=== PATIENT | male | born 1950 | race Two or more races ===

== ENCOUNTER 2021-09-23 08:53 | Inpatient (IN) | payer OTHER, MEDICAID ==
[~2021-09-23] VITALS: Ht 172.7 cm; Wt 60.1 kg
[2021-09-23] MEDS ORDERED: methylPREDNISolone SOD SUCC 125 MG/2 ML VL IV ONE (10:30)
[2021-09-23] MEDS ORDERED: IPRATROPIUM BROM 0.5 MG/2.5ML INH SOL NEB ONE (10:30)
[2021-09-23] MEDS ORDERED: ALBUTEROL SULF 2.5 MG/0.5ML(0.5%) NEB SOLN NEB ONE (10:30)
[2021-09-23 12:02] LABS: Basophils # (auto) 0.1 10 ^3/uL (0-0.2); Basophils % (auto) 0.7 % (0.0-2.0); Eosinophils # (auto) 0.2 10 ^3/uL (0-0.8); Eosinophils % (auto) 1.9 % (0.0-7.0); Hematocrit 31.7 % (41.0-53.0); Hemoglobin 10.6 g/dL (13.5-17.5); Lymphocytes # (auto) 1.2 10 ^3/uL (0.4-5.4); Lymphocytes % (auto) 13.3 % (10.0-50.0); Mean Corpuscular Hemoglobin 29.4 pg (28.0-32.0); Mean Corpuscular Hgb Conc. 33.4 g/dL (32.0-36.0); Monocytes # (auto) 0.4 10 ^3/uL (0-1.3); Monocytes % (auto) 4.8 % (0.0-12.0); Neutrophils # (auto) 7.1 10 ^3/uL (1.6-8.6); Neutrophils % (auto) 79.3 % (37.0-80.0); Nucleated Red Blood Cells % 0.1 %; Red Cell Distribution Width 17.8 % (11.8-14.3); White Blood Cell 8.9 10^3/uL (4.4-10.8)
[2021-09-23] MEDS ORDERED: IPRATROPIUM BROM 0.5 MG/2.5ML INH SOL NEB PRN (12:30)
[2021-09-23 12:33] LABS: Potassium 4.2 mmol/L (3.5-5.1)
[2021-09-23 13:13] LABS: Albumin 2.5 g/dL (3.4-5.0); BUN/Creatinine Ratio 12.4; Bilirubin, Total 0.5 mg/dL (0.2-1.0); Calcium 8.6 mg/dL (8.5-10.1); Total Protein 6.7 g/dL (6.4-8.2)
[2021-09-23] MEDS ORDERED: FUROSEMIDE 20 MG/2 ML VIAL IV ONE (13:15)
[2021-09-23] MEDS: methylPREDNISolone SOD SUCC 40 MG/ML VL IV SCH ×2 (14:00→22:49)
[2021-09-23] MEDS ORDERED: DOXYCYCLINE 100MG/250ML 250 ML IV ONE (14:30)
[2021-09-23] MEDS ORDERED: cefTRIAXone 1GM/50ML D5W 50 ML IV ONE ×2 (14:30→19:00)
[2021-09-23 15:05] LABS: Urine Bacteria NONE SEEN /hpf (None Seen); Urine Blood TRACE /uL (Negative); Urine Specific Gravity 1.012 (1.001-1.035); Urine WBC 1 /hpf (0 - 3)
[2021-09-23] MEDS ORDERED: LABETALOL HCL 5 MG/ML 4ML SYRINGE IV ONE (17:15)
[2021-09-23] MEDS ORDERED: NITROGLYCERIN 0.4 MG SL TAB SL PRN ×2 (17:15→19:15)
[2021-09-23] MEDS ORDERED: MORPHINE SULFATE INJECTION 2 MG/ML SYRG IV PRN ×2 (17:15→19:15)
[2021-09-23] MEDS ORDERED: hydrALAZINE HCL 20 MG/ML VL IV ONE (17:45)
[2021-09-23] MEDS ORDERED: hydrALAZINE HCL 20 MG/ML VL ONE (17:45)
[2021-09-23] MEDS ORDERED: ALBUTEROL SULF 2.5 MG/0.5ML(0.5%) NEB SOLN NEB SCH (18:00)
[2021-09-23] MEDS ORDERED: LORazepam 2MG/ML-1ML VIAL IV ONE (18:15)
[2021-09-23] MEDS ORDERED: hydrALAZINE HCL 20 MG/ML VL IV PRN (18:30)
[2021-09-23] MEDS ORDERED: HYDR-4798 PO (18:50)
[2021-09-23] MEDS ORDERED: AMLO-496 PO (18:50)
[2021-09-23] MEDS ORDERED: ALEN70TA74 PO (18:50)
[2021-09-23] MEDS ORDERED: BACL10TA PO (18:50)
[2021-09-23] MEDS ORDERED: TRAZ-184 PO (18:50)
[2021-09-23] MEDS ORDERED: GABA800T97 PO (18:50)
[2021-09-23] MEDS ORDERED: SERT-160 PO (18:50)
[2021-09-23] MEDS ORDERED: NITR0.4S29 SL (18:50)
[2021-09-23] MEDS ORDERED: ALBU108A5 INH (18:50)
[2021-09-23] MEDS ORDERED: DOXY100T2 PO (18:50)
[2021-09-23] MEDS ORDERED: ALPR0.255 PO (18:50)
[2021-09-23] MEDS ORDERED: LABETALOL HCL 5 MG/ML 4ML SYRINGE IV PRN (19:00)
[2021-09-23] MEDS ORDERED: ENOXAPARIN SOD 40 MG/0.4 ML SYRINGE SC ONE (19:00)
[2021-09-23] MEDS ORDERED: FAMOTIDINE (10MG/ML) 2ML VL IV ONE (19:00)
[2021-09-23] MEDS ORDERED: ONDANSETRON HCL 4 MG/2 ML VIAL IV PRN (19:15)
[2021-09-23] MEDS ORDERED: DOCUSATE SOD 100 MG CAP PO PRN (19:15)
[2021-09-23] MEDS ORDERED: NIFEdipine ER 30 MG TAB PO ONE (19:15)
[2021-09-23] MEDS ORDERED: ACETAMINOPHEN 325 MG TAB PO PRN (19:15)
[2021-09-23] MEDS ORDERED: ALUM & MAG HYDROX-SIMETH LIQ(MAALOX) 30 ML PO PRN (19:15)
[2021-09-23] MEDS ORDERED: SODIUM CHLORIDE 0.9% 1,000 ML IV SCH (19:15)
[2021-09-23] MEDS ORDERED: METOPROLOL SUCCINATE XL 50 MG TAB PO ONE (19:15)
[2021-09-23] MEDS: ZOLPIDEM TARTRATE 5 MG TAB PO PRN (19:24)
[2021-09-23] MEDS ORDERED: BUDESONIDE (INHALATION) 0.5 MG/2 ML NEB NEB ONE (19:25)
[2021-09-23] MEDS ORDERED: AZITHROMYCIN 500MG/ 250ML 250 ML IV ONE (20:00)
[2021-09-23] MEDS: ALBUTEROL SULF 2.5 MG/0.5ML(0.5%) NEB SOLN NEB SCH ×2 (20:06→22:38)
[2021-09-23] MEDS: IPRATROPIUM BROM 0.5 MG/2.5ML INH SOL NEB SCH ×2 (20:06→22:38)
[2021-09-23 20:43] LABS: Alcohol, Urine < 3.0 mg/dL (0-10); Amphetamine Screen, Urine NEGATIVE (NEGATIVE); Barbiturate Scree,Urine NEGATIVE (NEGATIVE); Benzodiazephine Screen, Urine POSITIVE (NEGATIVE); Cocaine Screen, Urine NEGATIVE (NEGATIVE); Opiate Scree,Urine NEGATIVE (NEGATIVE); Phencyclidine Screen, Urine NEGATIVE (NEGATIVE)
[2021-09-23 20:52] LABS: Cannabinoid Screen, Urine POSITIVE (NEGATIVE)
[2021-09-23] MEDS: FAMOTIDINE (10MG/ML) 2ML VL IV SCH (22:00)
[2021-09-23] MEDS: traZODone HCL 50 MG TAB PO SCH (22:49)
[2021-09-23] MEDS: GABAPENTIN 300 MG CAP PO SCH (22:50)
[2021-09-23] MEDS: ATORVASTATIN 20 MG TAB PO SCH (22:50)
[2021-09-23] MEDS: POTASSIUM CHL 20 Meq TABLET PO SCH (22:50)
[2021-09-23] MEDS: MORPHINE SULFATE INJECTION 2 MG/ML SYRG IV PRN (22:52)
[2021-09-24] MEDS: ALBUTEROL SULF 2.5 MG/0.5ML(0.5%) NEB SOLN NEB SCH ×6 (02:09→22:00)
[2021-09-24] MEDS: IPRATROPIUM BROM 0.5 MG/2.5ML INH SOL NEB SCH ×6 (02:09→22:00)
[2021-09-24] MEDS: ZOLPIDEM TARTRATE 5 MG TAB PO PRN ×2 (02:22→22:53)
[2021-09-24] MEDS: BUDESONIDE (INHALATION) 0.5 MG/2 ML NEB NEB SCH (05:28)
[2021-09-24] MEDS: GABAPENTIN 300 MG CAP PO SCH ×3 (06:00→21:08)
[2021-09-24] MEDS: FUROSEMIDE 20 MG/2 ML VIAL IV SCH ×2 (07:04→18:03)
[2021-09-24] MEDS: methylPREDNISolone SOD SUCC 40 MG/ML VL IV SCH ×3 (07:04→21:08)
[2021-09-24 08:27] LABS: Basophils # (auto) 0 10 ^3/uL (0-0.2); Eosinophils # (auto) 0.1 10 ^3/uL (0-0.8); Eosinophils % (auto) 0.6 % (0.0-7.0); Hematocrit 29.2 % (41.0-53.0); Hemoglobin 9.9 g/dL (13.5-17.5); Lymphocytes # (auto) 1.1 10 ^3/uL (0.4-5.4); Mean Corpuscular Hemoglobin 29.5 pg (28.0-32.0); Mean Corpuscular Hgb Conc. 33.8 g/dL (32.0-36.0); Mean Corpuscular Volume 87.2 fL (80.0-100.0); Monocytes # (auto) 0.7 10 ^3/uL (0-1.3); Monocytes % (auto) 8.6 % (0.0-12.0); Neutrophils # (auto) 6.6 10 ^3/uL (1.6-8.6); Neutrophils % (auto) 77.8 % (37.0-80.0); Red Blood Cells 3.35 10^6/uL (4.5-5.90); Red Cell Distribution Width 17.2 % (11.8-14.3); White Blood Cell 8.5 10^3/uL (4.4-10.8)
[2021-09-24 08:45] LABS: INR 1.01 (0.9-1.15); Partial Thromboplastin Time 32.9 sec (23.6-33.0)
[2021-09-24 08:54] LABS: Magnesium 2.1 mg/dL (1.6-2.6); Phosphorus 4.8 mg/dL (2.5-4.90); Uric Acid 6.7 mg/dL (3.5-7.2)
[2021-09-24] MEDS: cefTRIAXone 1GM/50ML D5W 50 ML IV SCH (09:12)
[2021-09-24] MEDS ORDERED: ENOXAPARIN SOD 40 MG/0.4 ML SYRINGE SC SCH ×2 (10:00)
[2021-09-24] MEDS: FAMOTIDINE (10MG/ML) 2ML VL IV SCH (10:13)
[2021-09-24] MEDS: AZITHROMYCIN 500MG/ 250ML 250 ML IV SCH (10:13)
[2021-09-24] MEDS: POTASSIUM CHL 20 Meq TABLET PO SCH (10:14)
[2021-09-24] MEDS: BENAZEPRIL HCL 10 MG TAB PO SCH (10:14)
[2021-09-24] MEDS: ASPirin 81 mg TAB PO SCH (10:14)
[2021-09-24] MEDS: NIFEdipine ER 30 MG TAB PO SCH (10:16)
[2021-09-24] MEDS: METOPROLOL SUCCINATE XL 50 MG TAB PO SCH (10:16)
[2021-09-24] MEDS: SERTRALINE HCL 50 MG TAB PO SCH (10:16)
[2021-09-24 13:31] VITALS: BP 112/60
[2021-09-24 14:51] LABS: BUN/Creatinine Ratio 14.8; Calcium 8.1 mg/dL (8.5-10.1); Potassium 5.5 mmol/L (3.5-5.1)
[2021-09-24 16:42] VITALS: BP 110/60
[2021-09-24] MEDS: ATORVASTATIN 20 MG TAB PO SCH (21:08)
[2021-09-24] MEDS: traZODone HCL 50 MG TAB PO SCH (21:09)
[2021-09-24 22:00] VITALS: BP 115/60
[2021-09-25] MEDS: ALBUTEROL SULF 2.5 MG/0.5ML(0.5%) NEB SOLN NEB SCH ×6 (02:26→22:24)
[2021-09-25] MEDS: BUDESONIDE (INHALATION) 0.5 MG/2 ML NEB NEB SCH ×3 (02:26→18:33)
[2021-09-25] MEDS: IPRATROPIUM BROM 0.5 MG/2.5ML INH SOL NEB SCH ×6 (02:26→22:24)
[2021-09-25 05:00] VITALS: BP 115/65
[2021-09-25] MEDS: FUROSEMIDE 20 MG/2 ML VIAL IV SCH ×2 (05:32→17:54)
[2021-09-25] MEDS: GABAPENTIN 300 MG CAP PO SCH ×3 (05:33→21:42)
[2021-09-25] MEDS: methylPREDNISolone SOD SUCC 40 MG/ML VL IV SCH ×2 (05:33→21:41)
[2021-09-25] MEDS ORDERED: CLOPIDOGREL BISULFATE 75 MG TAB PO ONE (07:00)
[2021-09-25 08:00] VITALS: BP 128/68
[2021-09-25] MEDS: cefTRIAXone 1GM/50ML D5W 50 ML IV SCH (08:33)
[2021-09-25 09:00] VITALS: BP 128/68
[2021-09-25] MEDS: FAMOTIDINE (10MG/ML) 2ML VL IV SCH (09:57)
[2021-09-25] MEDS: AZITHROMYCIN 500MG/ 250ML 250 ML IV SCH (09:57)
[2021-09-25] MEDS: ASPirin 81 mg TAB PO SCH (09:58)
[2021-09-25] MEDS: ENOXAPARIN SOD 30 MG/0.3 ML SYRINGE SC SCH (09:58)
[2021-09-25] MEDS: SERTRALINE HCL 50 MG TAB PO SCH (09:59)
[2021-09-25] MEDS: METOPROLOL SUCCINATE XL 50 MG TAB PO SCH (09:59)
[2021-09-25] MEDS: BENAZEPRIL HCL 10 MG TAB PO SCH (10:00)
[2021-09-25] MEDS: NIFEdipine ER 30 MG TAB PO SCH (10:01)
[2021-09-25] MEDS ORDERED: SODIUM ZIRCONIUM CYCL 10 GM PAK PO ONE (10:30)
[2021-09-25 13:00] VITALS: BP 105/66
[2021-09-25] MEDS: HYDROcodone-ACET 5/325MG TAB PO PRN (18:09)
[2021-09-25 20:00] VITALS: BP 110/69
[2021-09-25] MEDS: traZODone HCL 50 MG TAB PO SCH (21:42)
[2021-09-25] MEDS: ATORVASTATIN 20 MG TAB PO SCH (21:42)
[2021-09-25 22:00] VITALS: BP 101/64
[2021-09-25] MEDS: ZOLPIDEM TARTRATE 5 MG TAB PO PRN (22:40)
[2021-09-26] MEDS: IPRATROPIUM BROM 0.5 MG/2.5ML INH SOL NEB SCH ×6 (02:00→22:44)
[2021-09-26] MEDS: ALBUTEROL SULF 2.5 MG/0.5ML(0.5%) NEB SOLN NEB SCH ×6 (02:00→22:44)
[2021-09-26 05:00] VITALS: BP 102/50
[2021-09-26] MEDS: FUROSEMIDE 20 MG/2 ML VIAL IV SCH (05:42)
[2021-09-26] MEDS: HYDROcodone-ACET 5/325MG TAB PO PRN ×3 (05:43→17:58)
[2021-09-26] MEDS: GABAPENTIN 300 MG CAP PO SCH ×3 (06:52→21:47)
[2021-09-26] MEDS: BUDESONIDE (INHALATION) 0.5 MG/2 ML NEB NEB SCH ×2 (06:53→19:14)
[2021-09-26 08:32] LABS: Potassium 4.4 mmol/L (3.5-5.1)
[2021-09-26 08:36] LABS: BUN/Creatinine Ratio 18.2; Calcium 7.8 mg/dL (8.5-10.1)
[2021-09-26 08:42] VITALS: BP 123/69
[2021-09-26] MEDS: cefTRIAXone 1GM/50ML D5W 50 ML IV SCH (09:00)
[2021-09-26] MEDS: AZITHROMYCIN 500MG/ 250ML 250 ML IV SCH (09:35)
[2021-09-26] MEDS: ASPirin 81 mg TAB PO SCH (09:35)
[2021-09-26] MEDS: methylPREDNISolone SOD SUCC 40 MG/ML VL IV SCH ×2 (09:35→21:45)
[2021-09-26] MEDS: FAMOTIDINE (10MG/ML) 2ML VL IV SCH (09:35)
[2021-09-26] MEDS: SERTRALINE HCL 50 MG TAB PO SCH (09:36)
[2021-09-26] MEDS: ENOXAPARIN SOD 30 MG/0.3 ML SYRINGE SC SCH (09:36)
[2021-09-26] MEDS: NIFEdipine ER 30 MG TAB PO SCH (09:48)
[2021-09-26] MEDS: METOPROLOL SUCCINATE XL 50 MG TAB PO SCH (09:48)
[2021-09-26] MEDS: BENAZEPRIL HCL 10 MG TAB PO SCH (09:48)
[2021-09-26 13:00] VITALS: BP 119/72
[2021-09-26 16:45] VITALS: BP 119/72
[2021-09-26 17:00] VITALS: BP 122/66
[2021-09-26] MEDS: LORazepam 0.5 MG TAB PO PRN (21:04)
[2021-09-26] MEDS: ERTAPENEM SOD INJ 0.5 GM in SODIUM CHL 0.9% 50 ML IV SCH (21:45)
[2021-09-26] MEDS: hydrALAZINE HCL 25 MG TAB PO SCH (21:46)
[2021-09-26] MEDS: traZODone HCL 50 MG TAB PO SCH (21:46)
[2021-09-26] MEDS: ATORVASTATIN 20 MG TAB PO SCH (21:46)
[2021-09-26 22:00] VITALS: BP 125/66
[2021-09-26] MEDS ORDERED: ERTAPENEM SOD INJ 1 GM in SODIUM CHL 0.9% 50 ML IV SCH (22:00)
[2021-09-26] MEDS: ZOLPIDEM TARTRATE 5 MG TAB PO PRN (22:26)
[2021-09-27] MEDS: IPRATROPIUM BROM 0.5 MG/2.5ML INH SOL NEB SCH ×6 (02:00→22:29)
[2021-09-27] MEDS: ALBUTEROL SULF 2.5 MG/0.5ML(0.5%) NEB SOLN NEB SCH ×6 (02:00→22:29)
[2021-09-27 05:00] VITALS: BP_SYST 110; BP_SYST 99; BP_DIAS 66; BP_DIAS 68
[2021-09-27] MEDS: GABAPENTIN 300 MG CAP PO SCH ×3 (06:00→22:02)
[2021-09-27 06:26] LABS: BUN/Creatinine Ratio 19.4; Calcium 7.9 mg/dL (8.5-10.1); Potassium 5.3 mmol/L (3.5-5.1)
[2021-09-27] MEDS: BUDESONIDE (INHALATION) 0.5 MG/2 ML NEB NEB SCH ×2 (07:08→19:08)
[2021-09-27] MEDS: SERTRALINE HCL 50 MG TAB PO SCH (08:20)
[2021-09-27] MEDS: ASPirin 81 mg TAB PO SCH (08:23)
[2021-09-27] MEDS: METOPROLOL SUCCINATE XL 50 MG TAB PO SCH (08:23)
[2021-09-27] MEDS: NIFEdipine ER 30 MG TAB PO SCH (08:24)
[2021-09-27] MEDS: hydrALAZINE HCL 25 MG TAB PO SCH ×2 (08:25→22:02)
[2021-09-27] MEDS: AZITHROMYCIN 500MG/ 250ML 250 ML IV SCH (08:26)
[2021-09-27] MEDS: FAMOTIDINE (10MG/ML) 2ML VL IV SCH (08:26)
[2021-09-27] MEDS: ENOXAPARIN SOD 30 MG/0.3 ML SYRINGE SC SCH (08:27)
[2021-09-27] MEDS: methylPREDNISolone SOD SUCC 40 MG/ML VL IV SCH (08:27)
[2021-09-27] MEDS: HYDROcodone-ACET 5/325MG TAB PO PRN (08:28)
[2021-09-27 09:00] VITALS: BP 138/66
[2021-09-27] MEDS ORDERED: ERTAPENEM SOD INJ 0.5 GM in SODIUM CHL 0.9% 50 ML IV SCH (10:00)
[2021-09-27] MEDS: LORazepam 0.5 MG TAB PO PRN (11:05)
[2021-09-27 13:00] VITALS: BP 129/67
[2021-09-27 15:15] LABS: Partial Thromboplastin Time 29.5 sec (23.6-33.0)
[2021-09-27 15:36] LABS: Protein, Urine 127.5 mg/dL (0.0-11.9)
[2021-09-27] MEDS: MORPHINE SULFATE INJECTION 2 MG/ML SYRG IV PRN ×2 (16:13→20:18)
[2021-09-27 17:00] VITALS: BP 125/68
[2021-09-27 21:02] VITALS: BP 124/70
[2021-09-27] MEDS: traZODone HCL 50 MG TAB PO SCH (22:01)
[2021-09-27] MEDS: ATORVASTATIN 20 MG TAB PO SCH (22:02)
[2021-09-27] MEDS: ERTAPENEM SOD INJ 0.5 GM in SODIUM CHL 0.9% 50 ML IV SCH (22:04)
[2021-09-27] MEDS: ZOLPIDEM TARTRATE 5 MG TAB PO PRN (22:34)
[2021-09-28] MEDS: IPRATROPIUM BROM 0.5 MG/2.5ML INH SOL NEB SCH ×6 (02:00→22:17)
[2021-09-28] MEDS: ALBUTEROL SULF 2.5 MG/0.5ML(0.5%) NEB SOLN NEB SCH ×6 (02:00→22:17)
[2021-09-28] MEDS: GABAPENTIN 300 MG CAP PO SCH ×3 (06:01→20:56)
[2021-09-28 08:39] VITALS: BP 137/66
[2021-09-28] MEDS: AZITHROMYCIN 500MG/ 250ML 250 ML IV SCH (09:39)
[2021-09-28] MEDS: FAMOTIDINE (10MG/ML) 2ML VL IV SCH (09:39)
[2021-09-28] MEDS: methylPREDNISolone SOD SUCC 40 MG/ML VL IV SCH (09:39)
[2021-09-28] MEDS: NIFEdipine ER 30 MG TAB PO SCH (09:40)
[2021-09-28] MEDS: ENOXAPARIN SOD 30 MG/0.3 ML SYRINGE SC SCH (09:40)
[2021-09-28] MEDS: hydrALAZINE HCL 25 MG TAB PO SCH ×2 (09:40→21:05)
[2021-09-28] MEDS: SERTRALINE HCL 50 MG TAB PO SCH (09:40)
[2021-09-28] MEDS: ASPirin 81 mg TAB PO SCH (09:40)
[2021-09-28] MEDS: METOPROLOL SUCCINATE XL 50 MG TAB PO SCH (09:40)
[2021-09-28] MEDS: BUDESONIDE (INHALATION) 0.5 MG/2 ML NEB NEB SCH ×2 (10:23→22:17)
[2021-09-28 11:28] LABS: Albumin 2.2 g/dL (3.4-5.0); Calcium 7.8 mg/dL (8.5-10.1); Potassium 5.1 mmol/L (3.5-5.1)
[2021-09-28 11:33] LABS: Bilirubin, Total 0.2 mg/dL (0.2-1.0); Total Protein 5.3 g/dL (6.4-8.2)
[2021-09-28 13:00] VITALS: BP 135/71
[2021-09-28] MEDS: HYDROcodone-ACET 5/325MG TAB PO PRN ×2 (14:13→20:56)
[2021-09-28 17:00] VITALS: BP 130/75
[2021-09-28] MEDS: ATORVASTATIN 20 MG TAB PO SCH (20:56)
[2021-09-28] MEDS: traZODone HCL 50 MG TAB PO SCH (21:05)
[2021-09-28] MEDS: ZOLPIDEM TARTRATE 5 MG TAB PO PRN (21:06)
[2021-09-28] MEDS: ERTAPENEM SOD INJ 0.5 GM in SODIUM CHL 0.9% 50 ML IV SCH (21:13)
[2021-09-28 21:38] VITALS: BP 123/70
[2021-09-29] MEDS: IPRATROPIUM BROM 0.5 MG/2.5ML INH SOL NEB SCH ×6 (02:12→21:57)
[2021-09-29] MEDS: ALBUTEROL SULF 2.5 MG/0.5ML(0.5%) NEB SOLN NEB SCH ×6 (02:12→21:57)
[2021-09-29 05:00] VITALS: BP 134/69
[2021-09-29] MEDS: BUDESONIDE (INHALATION) 0.5 MG/2 ML NEB NEB SCH ×2 (06:21→18:18)
[2021-09-29 07:47] LABS: Albumin 2.2 g/dL (3.4-5.0); BUN/Creatinine Ratio 19.5; Bilirubin, Total 0.2 mg/dL (0.2-1.0); Calcium 8.3 mg/dL (8.5-10.1); Total Protein 5.2 g/dL (6.4-8.2)
[2021-09-29 08:52] VITALS: BP 134/69
[2021-09-29 09:00] VITALS: BP 132/56
[2021-09-29] MEDS: ASPirin 81 mg TAB PO SCH (09:35)
[2021-09-29] MEDS: METOPROLOL SUCCINATE XL 50 MG TAB PO SCH (09:36)
[2021-09-29] MEDS: FAMOTIDINE (10MG/ML) 2ML VL IV SCH (09:36)
[2021-09-29] MEDS: SERTRALINE HCL 50 MG TAB PO SCH (09:37)
[2021-09-29] MEDS: NIFEdipine ER 30 MG TAB PO SCH (09:38)
[2021-09-29] MEDS: hydrALAZINE HCL 25 MG TAB PO SCH ×2 (09:39→22:06)
[2021-09-29] MEDS: methylPREDNISolone SOD SUCC 40 MG/ML VL IV SCH (09:40)
[2021-09-29] MEDS: AZITHROMYCIN 500MG/ 250ML 250 ML IV SCH (09:41)
[2021-09-29] MEDS: ENOXAPARIN SOD 30 MG/0.3 ML SYRINGE SC SCH (09:41)
[2021-09-29] MEDS: MORPHINE SULFATE INJECTION 2 MG/ML SYRG IV PRN (09:43)
[2021-09-29] MEDS: GABAPENTIN 300 MG CAP PO SCH ×3 (10:00→22:06)
[2021-09-29 13:00] VITALS: BP 129/70
[2021-09-29] MEDS: HYDROcodone-ACET 5/325MG TAB PO PRN ×2 (16:13→20:38)
[2021-09-29 17:00] VITALS: BP 130/66
[2021-09-29 22:00] VITALS: BP 132/73
[2021-09-29] MEDS: ERTAPENEM SOD INJ 0.5 GM in SODIUM CHL 0.9% 50 ML IV SCH (22:05)
[2021-09-29] MEDS: ATORVASTATIN 20 MG TAB PO SCH (22:06)
[2021-09-29] MEDS: traZODone HCL 50 MG TAB PO SCH (22:06)
[2021-09-29] MEDS: ZOLPIDEM TARTRATE 5 MG TAB PO PRN (23:13)
[2021-09-30] MEDS: ALBUTEROL SULF 2.5 MG/0.5ML(0.5%) NEB SOLN NEB SCH ×7 (02:00→22:07)
[2021-09-30] MEDS: IPRATROPIUM BROM 0.5 MG/2.5ML INH SOL NEB SCH ×7 (02:00→22:07)
[2021-09-30 05:00] VITALS: BP 126/60
[2021-09-30] MEDS: GABAPENTIN 300 MG CAP PO SCH ×3 (05:52→22:07)
[2021-09-30] MEDS ORDERED: ALENDRONATE SODIUM 10 MG TAB PO SCH (06:00)
[2021-09-30 06:52] LABS: Albumin 2.1 g/dL (3.4-5.0); Potassium 4.5 mmol/L (3.5-5.1)
[2021-09-30 06:55] LABS: Bilirubin, Total 0.2 mg/dL (0.2-1.0); Total Protein 4.7 g/dL (6.4-8.2)
[2021-09-30 08:44] VITALS: BP 142/63
[2021-09-30] MEDS: BUDESONIDE (INHALATION) 0.5 MG/2 ML NEB NEB SCH ×2 (10:03→18:35)
[2021-09-30] MEDS: ASPirin 81 mg TAB PO SCH (10:09)
[2021-09-30] MEDS: SERTRALINE HCL 50 MG TAB PO SCH (10:10)
[2021-09-30] MEDS: hydrALAZINE HCL 25 MG TAB PO SCH ×2 (10:10→22:10)
[2021-09-30] MEDS: METOPROLOL SUCCINATE XL 50 MG TAB PO SCH (10:11)
[2021-09-30] MEDS: FAMOTIDINE (10MG/ML) 2ML VL IV SCH (10:12)
[2021-09-30] MEDS: NIFEdipine ER 30 MG TAB PO SCH (10:12)
[2021-09-30] MEDS: methylPREDNISolone SOD SUCC 40 MG/ML VL IV SCH (10:12)
[2021-09-30] MEDS: ENOXAPARIN SOD 30 MG/0.3 ML SYRINGE SC SCH (10:13)
[2021-09-30] MEDS: AZITHROMYCIN 500MG/ 250ML 250 ML IV SCH (10:13)
[2021-09-30] MEDS: HYDROcodone-ACET 5/325MG TAB PO PRN (10:15)
[2021-09-30 13:17] VITALS: BP 139/74
[2021-09-30 16:46] VITALS: BP 127/66
[2021-09-30] MEDS: ERTAPENEM SOD INJ 0.5 GM in SODIUM CHL 0.9% 50 ML IV SCH (22:05)
[2021-09-30] MEDS: ATORVASTATIN 20 MG TAB PO SCH (22:06)
[2021-09-30] MEDS: traZODone HCL 50 MG TAB PO SCH (22:06)
[2021-09-30] MEDS: ZOLPIDEM TARTRATE 5 MG TAB PO PRN (22:07)
[2021-09-30] MEDS: MORPHINE SULFATE INJECTION 2 MG/ML SYRG IV PRN (22:09)
[2021-09-30 22:22] VITALS: BP 137/69
[2021-10-01] MEDS: ALBUTEROL SULF 2.5 MG/0.5ML(0.5%) NEB SOLN NEB SCH ×6 (02:31→22:20)
[2021-10-01] MEDS: IPRATROPIUM BROM 0.5 MG/2.5ML INH SOL NEB SCH ×6 (02:32→22:20)
[2021-10-01 05:10] VITALS: BP 134/72
[2021-10-01] MEDS: GABAPENTIN 300 MG CAP PO SCH ×3 (05:36→22:05)
[2021-10-01 07:28] LABS: Basophils # (auto) 0 10 ^3/uL (0-0.2); Basophils % (auto) 0.1 % (0.0-2.0); Eosinophils # (auto) 0.1 10 ^3/uL (0-0.8); Eosinophils % (auto) 0.6 % (0.0-7.0); Hematocrit 27.3 % (41.0-53.0); Hemoglobin 9.1 g/dL (13.5-17.5); Lymphocytes % (auto) 30.2 % (10.0-50.0); Mean Corpuscular Hemoglobin 29.1 pg (28.0-32.0); Mean Corpuscular Hgb Conc. 33.3 g/dL (32.0-36.0); Mean Corpuscular Volume 87.2 fL (80.0-100.0); Monocytes # (auto) 0.8 10 ^3/uL (0-1.3); Monocytes % (auto) 8.7 % (0.0-12.0); Neutrophils # (auto) 5.9 10 ^3/uL (1.6-8.6); Neutrophils % (auto) 60.4 % (37.0-80.0); Red Blood Cells 3.12 10^6/uL (4.5-5.90); Red Cell Distribution Width 16.6 % (11.8-14.3); White Blood Cell 9.8 10^3/uL (4.4-10.8)
[2021-10-01 07:44] LABS: Potassium 4.5 mmol/L (3.5-5.1)
[2021-10-01 07:49] LABS: Albumin 2.3 g/dL (3.4-5.0); BUN/Creatinine Ratio 17.6; Bilirubin, Total 0.2 mg/dL (0.2-1.0); Calcium 8.2 mg/dL (8.5-10.1); Total Protein 5.2 g/dL (6.4-8.2)
[2021-10-01 08:30] VITALS: BP 129/67
[2021-10-01] MEDS: FAMOTIDINE (10MG/ML) 2ML VL IV SCH (10:00)
[2021-10-01] MEDS: ENOXAPARIN SOD 30 MG/0.3 ML SYRINGE SC SCH (10:00)
[2021-10-01] MEDS: SERTRALINE HCL 50 MG TAB PO SCH (10:00)
[2021-10-01] MEDS: AZITHROMYCIN 500MG/ 250ML 250 ML IV SCH (10:00)
[2021-10-01] MEDS: ASPirin 81 mg TAB PO SCH (10:00)
[2021-10-01] MEDS: BUDESONIDE (INHALATION) 0.5 MG/2 ML NEB NEB SCH ×2 (10:27→19:24)
[2021-10-01] MEDS ORDERED: FUROSEMIDE 20 MG/2 ML VIAL IV ONE (11:15)
[2021-10-01] MEDS: MORPHINE SULFATE INJECTION 2 MG/ML SYRG IV PRN ×3 (11:17→22:06)
[2021-10-01 13:00] VITALS: BP 143/80
[2021-10-01] MEDS: hydrALAZINE HCL 25 MG TAB PO SCH ×2 (13:46→22:04)
[2021-10-01] MEDS: NIFEdipine ER 30 MG TAB PO SCH (13:46)
[2021-10-01] MEDS: METOPROLOL SUCCINATE XL 50 MG TAB PO SCH (13:46)
[2021-10-01] MEDS: HYDROcodone-ACET 5/325MG TAB PO PRN (13:54)
[2021-10-01 16:58] VITALS: BP 130/56
[2021-10-01] MEDS: ERTAPENEM SOD INJ 0.5 GM in SODIUM CHL 0.9% 50 ML IV SCH (22:00)
[2021-10-01] MEDS: ATORVASTATIN 20 MG TAB PO SCH (22:05)
[2021-10-01] MEDS: traZODone HCL 50 MG TAB PO SCH (22:05)
[2021-10-01 22:27] VITALS: BP 142/72
[2021-10-01] MEDS: ZOLPIDEM TARTRATE 5 MG TAB PO PRN (23:10)
[2021-10-02] MEDS: ALBUTEROL SULF 2.5 MG/0.5ML(0.5%) NEB SOLN NEB SCH ×4 (02:15→14:12)
[2021-10-02] MEDS: IPRATROPIUM BROM 0.5 MG/2.5ML INH SOL NEB SCH ×4 (02:15→14:12)
[2021-10-02 05:04] VITALS: BP 108/70
[2021-10-02] MEDS: GABAPENTIN 300 MG CAP PO SCH ×2 (06:10→14:00)
[2021-10-02 07:06] LABS: Albumin 2.2 g/dL (3.4-5.0); Calcium 7.9 mg/dL (8.5-10.1); Potassium 4.1 mmol/L (3.5-5.1)
[2021-10-02 07:11] LABS: BUN/Creatinine Ratio 18.5; Bilirubin, Total 0.2 mg/dL (0.2-1.0)
[2021-10-02] MEDS: BUDESONIDE (INHALATION) 0.5 MG/2 ML NEB NEB SCH (07:33)
[2021-10-02 09:00] VITALS: BP 132/69
[2021-10-02] MEDS: ASPirin 81 mg TAB PO SCH (09:18)
[2021-10-02] MEDS: AZITHROMYCIN 500MG/ 250ML 250 ML IV SCH (09:18)
[2021-10-02] MEDS: hydrALAZINE HCL 25 MG TAB PO SCH (09:19)
[2021-10-02] MEDS: NIFEdipine ER 30 MG TAB PO SCH (09:20)
[2021-10-02] MEDS: METOPROLOL SUCCINATE XL 50 MG TAB PO SCH (09:21)
[2021-10-02] MEDS: SERTRALINE HCL 50 MG TAB PO SCH (09:21)
[2021-10-02] MEDS: ENOXAPARIN SOD 30 MG/0.3 ML SYRINGE SC SCH (09:21)
[2021-10-02] MEDS: FAMOTIDINE (10MG/ML) 2ML VL IV SCH (09:29)
[2021-10-02] MEDS ORDERED: FUROSEMIDE 20 MG/2 ML VIAL IV SCH (10:00)
[2021-10-02] MEDS ORDERED: methylPREDNISolone SOD SUCC 40 MG/ML VL IV SCH (10:00)
[2021-10-02 12:39] VITALS: BP 136/72
[2021-10-02 14:19] VITALS: BP 132/69
== END 2021-10-02 15:30 | disposition home or self-care (01) | DRG 193 ==
LOC: ER 08:53 → EDBD 08:53 → TELE 17:15 → TELE-WESTW 09-24 12:55 → WEST WING 09-24 14:38
PROVIDERS: ADMIT Hospitalist; ATTEND Internal Medicine Geriatric Medicine
PROC: 0W993ZZ Drainage of Right Pleural Cavity, Percutaneous Approach (ICD-10-PCS; principal; 2021-10-01)
DX: J18.9 Pneumonia, unspecified organism (principal); J96.21 Acute and chronic respiratory failure with hypoxia; N17.0 Acute kidney failure with tubular necrosis; I50.23 Acute on chronic systolic (congestive) heart failure; J44.1 Chronic obstructive pulmonary disease with (acute) exacerbation; J98.11 Atelectasis; J45.901 Unspecified asthma with (acute) exacerbation; E87.4 Mixed disorder of acid-base balance; N39.0 Urinary tract infection, site not specified; I13.0 Hypertensive heart and chronic kidney disease with heart failure and stage 1 through stage 4 chronic kidney disease, or unspecified chronic kidney disease; J44.0 Chronic obstructive pulmonary disease with (acute) lower respiratory infection; J20.9 Acute bronchitis, unspecified; N18.32 Chronic kidney disease, stage 3b; E88.09 Other disorders of plasma-protein metabolism, not elsewhere classified; F10.10 Alcohol abuse, uncomplicated; E78.5 Hyperlipidemia, unspecified; F12.90 Cannabis use, unspecified, uncomplicated; F17.200 Nicotine dependence, unspecified, uncomplicated; I25.10 Atherosclerotic heart disease of native coronary artery without angina pectoris; F41.9 Anxiety disorder, unspecified; R80.9 Proteinuria, unspecified; I50.9 Heart failure, unspecified; D63.8 Anemia in other chronic diseases classified elsewhere; I65.29 Occlusion and stenosis of unspecified carotid artery; I73.9 Peripheral vascular disease, unspecified; K21.9 Gastro-esophageal reflux disease without esophagitis; Z20.822 Contact with and (suspected) exposure to COVID-19; Z79.899 Other long term (current) drug therapy; Z86.718 Personal history of other venous thrombosis and embolism; Z86.73 Personal history of transient ischemic attack (TIA), and cerebral infarction without residual deficits; Z95.1 Presence of aortocoronary bypass graft
CPT/HCPCS: 36415; 36600; 71045; 76775; 76942; 80048; 80053; 80307; 81001; 82306; 82570; 82805; 83036; 83605; 83735; 83880; 84100; 84156; 84443; 84484; 84550; 85025; 85379; 85610; 85730; 86160; 87040; 87086; 87088; 87186; 87426; 93005; 93306; 94640; 96365; 96366; 96368; 96372; 96375; 97110; 97116; 97530; 99291; G0378; J0696; J1335; J2405; J3490